=== PATIENT | male | born 1965 | race Asian ===

== ENCOUNTER 2017-05-01 22:50 | Inpatient (IN) | payer MEDICAID ==
[~2017-05-01] VITALS: Ht 170.2 cm; Wt 78.5 kg
[2017-05-01 23:32] VITALS: BP_SYST 155
[2017-05-02] MEDS ORDERED: NACL 0.9% 1,000 ML IV ONE ×2 (01:00→03:30)
[2017-05-02] MEDS ORDERED: ONDANSETRON HCL 4 MG/2 ML VIAL IVP ONE (01:00)
[2017-05-02] MEDS ORDERED: MORPHINE 2 MG/ML INJ. SYRINGE IVP ONE ×2 (01:00→03:30)
[2017-05-02 01:46] LABS: BASOPHILS % (AUTO) 0.5 % (0.0-2.0); EOSINOPHILS # (AUTO) 0.2 K/uL (0.0-0.4); EOSINOPHILS % (AUTO) 2.2 % (0.0-4.0); HEMATOCRIT 44.8 % (36-54); HEMOGLOBIN 15.2 g/dL (14.0-18.0); LYMPHOCYTES # (AUTO) 1.1 K/uL (1.0-5.5); LYMPHOCYTES % (AUTO) 14.1 % (20.5-51.5); MEAN CORPUSCULAR HEMOGLOBIN 31 pg (27-31); MEAN CORPUSCULAR HGB CONC 34 % (32-36); MEAN CORPUSCULAR VOLUME 92 fL (79.0-98.0); MONOCYTES # (AUTO) 0.4 K/uL (0.0-1.0); MONOCYTES % (AUTO) 5.6 % (1.7-9.3); NEUTROPHILS # (AUTO) 5.9 K/uL (1.8-7.7); NEUTROPHILS % (AUTO) 77.6 % (40.0-70.0); PLATELET COUNT (AUTO) 222 K/uL (130-430); RED CELL DISTRIBUTION WIDTH 11.9 % (9.0-15.0); WHITE BLOOD COUNT (AUTO) 7.6 K/uL (4.8-10.8)
[2017-05-02 01:56] LABS: ANION GAP 7 (5-15); CALCIUM 8.6 mg/dL (8.4-11.0); CHLORIDE 106 mmol/L (98-107); CREATININE 0.88 mg/dL (0.55-1.30); GLUCOSE 140 mg/dL (70-99); POTASSIUM 3.6 mmol/L (3.5-5.1); SODIUM SERUM 139 mmol/L (136-145); UREA NITROGEN, BLOOD 18 mg/dL (8-21)
[2017-05-02 01:58] LABS: GFR AFRICAN AMERICAN 118 mL/min (>90)
[2017-05-02 02:05] LABS: ALANINE AMINOTRANSFERASE 27 U/L (12-78); ALBUMIN 3.5 g/dL (3.4-4.8); ASPARTATE AMINOTRANSFERASE 17 U/L (10-37); LIPASE 176 U/L (73-393); TOTAL BILIRUBIN 0.4 mg/dL (0.0-1.0)
[2017-05-02 02:43] LABS: BILIRUBIN,URINE NEGATIVE (NEGATIVE); BLOOD, URINE NEGATIVE (NEGATIVE); CLARITY/URINE CLEAR (CLEAR); COLOR,URINE YELLOW (YELLOW); GLUCOSE,URINE NEGATIVE (NEGATIVE); KETONES,URINE NEGATIVE (NEGATIVE); LEUKOCYTE ESTERASE ,URINE NEGATIVE (NEGATIVE); NITRITE, URINE NEGATIVE (NEGATIVE); PROTEIN URINE NEGATIVE (NEGATIVE); UROBILINOGEN,URINE 0.2 (0.2-1.0)
[2017-05-02] MEDS ORDERED: LOSA50TA3 PO (03:41)
[2017-05-02] MEDS ORDERED: LR 1,000 ML IV ONE (03:45)
[2017-05-02] MEDS: ACETAMINOPHEN 325 MG TABLET PO PRN ×2 (05:36→11:59)
[2017-05-02] MEDS: ONDANSETRON HCL 4 MG/2 ML VIAL IVP PRN ×2 (05:37→13:21)
[2017-05-02 12:52] VITALS: BP_SYST 120
[2017-05-02 16:24] VITALS: BP_SYST 128
[2017-05-02] MEDS: FAMOTIDINE PF 20 MG/2 ML VIAL IVP SCH ×2 (16:30→20:13)
[2017-05-02] MEDS ORDERED: MORPHINE 4 MG/ML INJ. SYRINGE IVP PRN (16:30)
[2017-05-02] MEDS ORDERED: MORPHINE 2 MG/ML INJ. SYRINGE IVP PRN (16:30)
[2017-05-02] MEDS ORDERED: ONDANSETRON HCL 4 MG/2 ML VIAL IVP PRN (16:30)
[2017-05-02 16:51] VITALS: BP_SYST 133
[2017-05-02 20:00] VITALS: BP_SYST 118
[2017-05-03] VITALS: BP_SYST 123
[2017-05-03 07:02] LABS: BASOPHILS % (AUTO) 0.2 % (0.0-2.0); EOSINOPHILS # (AUTO) 0.1 K/uL (0.0-0.4); EOSINOPHILS % (AUTO) 2.3 % (0.0-4.0); HEMATOCRIT 40.1 % (36-54); HEMOGLOBIN 13.7 g/dL (14.0-18.0); LYMPHOCYTES # (AUTO) 1.2 K/uL (1.0-5.5); LYMPHOCYTES % (AUTO) 19.8 % (20.5-51.5); MEAN CORPUSCULAR HEMOGLOBIN 32 pg (27-31); MEAN CORPUSCULAR HGB CONC 34 % (32-36); MEAN CORPUSCULAR VOLUME 93 fL (79.0-98.0); MONOCYTES # (AUTO) 0.4 K/uL (0.0-1.0); MONOCYTES % (AUTO) 6.3 % (1.7-9.3); NEUTROPHILS # (AUTO) 4.4 K/uL (1.8-7.7); NEUTROPHILS % (AUTO) 71.4 % (40.0-70.0); PLATELET COUNT (AUTO) 200 K/uL (130-430); RED BLOOD CELL COUNT(AUTO) 4.33 MIL/uL (4.2-6.2); RED CELL DISTRIBUTION WIDTH 11.6 % (9.0-15.0); WHITE BLOOD COUNT (AUTO) 6.1 K/uL (4.8-10.8)
[2017-05-03 07:28] LABS: ALBUMIN 3.1 g/dL (3.4-4.8); CALCIUM 8.6 mg/dL (8.4-11.0); CREATININE 0.9 mg/dL (0.55-1.30); POTASSIUM 3.3 mmol/L (3.5-5.1); TOTAL BILIRUBIN 1.1 mg/dL (0.0-1.0)
[2017-05-03 08:24] VITALS: BP_SYST 125
[2017-05-03] MEDS: LOSARTAN POTASSIUM 50 MG TABLET (COZAAR) PO SCH (09:17)
[2017-05-03] MEDS: FAMOTIDINE PF 20 MG/2 ML VIAL IVP SCH ×2 (09:17→20:06)
[2017-05-03 12:51] LABS: ERYTHROCYTE SEDIMENTATION RATE 1 MM/HR (0-15)
[2017-05-03] MEDS ORDERED: POTASSIUM CHLORIDE 40 MEQ, LIDOCAINE JECT 2% PF 100 MG 50 MG in NS 250 ML IV ONE (16:00)
[2017-05-03 20:00] VITALS: BP_SYST 123
[2017-05-03] MEDS: POTASSIUM CHLORIDE 20 MEQ TAB.PRT.SR PO SCH (20:05)
[2017-05-04] VITALS: BP_SYST 118
[2017-05-04 07:10] LABS: ANION GAP 4 (5-15); CALCIUM 8.5 mg/dL (8.4-11.0); CHLORIDE 107 mmol/L (98-107); CREATININE 0.91 mg/dL (0.55-1.30); GLUCOSE 84 mg/dL (70-99); POTASSIUM 3.5 mmol/L (3.5-5.1); SODIUM SERUM 140 mmol/L (136-145); UREA NITROGEN, BLOOD 12 mg/dL (8-21)
[2017-05-04 07:28] LABS: GFR AFRICAN AMERICAN 113 mL/min (>90)
[2017-05-04 08:10] VITALS: BP_SYST 108
[2017-05-04] MEDS: FAMOTIDINE PF 20 MG/2 ML VIAL IVP SCH (09:00)
[2017-05-04] MEDS: POTASSIUM CHLORIDE 20 MEQ TAB.PRT.SR PO SCH ×2 (09:00→21:46)
[2017-05-04] MEDS: LOSARTAN POTASSIUM 50 MG TABLET (COZAAR) PO SCH ×2 (09:00→16:03)
[2017-05-04] MEDS: MIDAZOLAM HCL 5 MG/5 ML VIAL ONE ×4 (11:27→14:14)
[2017-05-04] MEDS ORDERED: SIMETHICONE 40 MG/0.6 ML ML ONE (11:27)
[2017-05-04] MEDS: fentaNYL CITRATE/PF 100 MCG/2 ML AMP ONE ×2 (14:10→16:06)
[2017-05-04 16:15] VITALS: BP_SYST 147
[2017-05-04 18:12] VITALS: BP_SYST 120
[2017-05-04 20:00] VITALS: BP_SYST 135
[2017-05-04] MEDS ORDERED: POTA20TA83 PO (20:05)
[2017-05-04] MEDS ORDERED: PRO40 PO (20:05)
[2017-05-05 00:10] VITALS: BP_SYST 120
[2017-05-05 08:00] VITALS: BP_SYST 140
[2017-05-05] MEDS: LOSARTAN POTASSIUM 50 MG TABLET (COZAAR) PO SCH (08:26)
[2017-05-05] MEDS: POTASSIUM CHLORIDE 20 MEQ TAB.PRT.SR PO SCH (08:26)
[2017-05-05] MEDS ORDERED: PANTOPRAZOLE SODIUM 40 MG TAB PO SCH (09:00)
== END 2017-05-05 11:40 | disposition home or self-care (01) | DRG 241 ==
LOC: SED 22:50 → SMU 05-02 03:36
PROVIDERS: ADMIT Internal Medicine; ATTEND Internal Medicine
PROC: 0DB68ZX Excision of Stomach, Via Natural or Artificial Opening Endoscopic, Diagnostic (ICD-10-PCS; principal; 2017-05-04 12:00)
DX: K29.70 Gastritis, unspecified, without bleeding (principal); E44.1 Mild protein-calorie malnutrition; I10 Essential (primary) hypertension; K52.9 Noninfective gastroenteritis and colitis, unspecified; Z79.899 Other long term (current) drug therapy; Z60.2 Problems related to living alone; R13.10 Dysphagia, unspecified; R94.31 Abnormal electrocardiogram [ECG] [EKG]; E87.6 Hypokalemia; Z68.27 Body mass index [BMI] 27.0-27.9, adult
CPT/HCPCS: 36415; 43239; 71045; 80048; 80053; 80061; 81003; 82272; 83690-TC; 84484; 85025; 85651-TC; 86710; 87045-TC; 87046; 87081; 87177; 87230-TC; 88305; 88312; 88313; 89055; 93005; 93306; 96361; 96374; 96375; 96376; 99285; J2250; J2270; J2405; J3010; J3480; J3490; J7030; J7050; J7120